=== PATIENT | male | born 1985 | race Caucasian/White ===

== ENCOUNTER 2021-01-06 13:05 | Emergency (ER) | payer SELFPAY ==
[~2021-01-06] VITALS: Ht 185 cm; Wt 90.0 kg
[~2021-01-06 13:05] MED LIST: SULF-222 PO
[2021-01-06] MEDS ORDERED: CEPHALEXIN 250 MG (KEFLEX) CAP PO STA (13:30)
[2021-01-06] MEDS ORDERED: DOXYCYCLINE 100 MG (VIBRAMYCIN) TABLET PO STA (13:30)
[2021-01-06 13:33] VITALS: BP 165/101
--- NOTE | 2021-01-06 13:38 | ED Integumentary General ---
General Chief Complaint: R arm infection Stated Complaint: R ARM WOUND Source: patient Exam Limitations: no limitations History of Present Illness Date Seen by Provider: Jan 06, 2021 Time Seen by Provider: 13:20 Initial Comments Very pleasant 35-year-old male coming in due to concerns for an infection on his right inner upper arm. Noticed a small red dot yesterday with the redness spreading today. No pus has come from it. No fever, chest pain, shortness of b reath, abdominal pain, nausea, vomiting, diarrhea, or any other concerns. Did not believe he had a bug bites or any type of sting. Denies any scratches, IV needlestick use, or any other concerns. Tetanus is updated within the last 5 years. Allergies and Home Medications Allergies Uncoded Allergies: NKDA (Allergy, Mild, 11/20/08) Home Medications Cephalexin 500 Mg Tablet, 500 MG PO TID Prescribed by: CARLENE BHAT on 01/06/21 1341 Doxycycline Hyclate 100 Mg Tablet, 100 MG PO BID Prescribed by: CARLENE BHAT on 01/06/21 1341 Trimethoprim/Sulfamethoxazole 1 Ea Tablet, 1 EA PO BID Prescribed by: JOSE CARPENTER on 08/24/14 1655 Patient Home Medication List Home Medication List Reviewed: Yes Review of Systems Review of Systems Constitutional: No fever EENTM: No blurred vision, No double vision, No throat pain Respiratory: No short of breath, No stridor Cardiovascular: No edema, No palpitations, No syncope Gastrointestinal: No diarrhea, No nausea Genitourinary: No hematuria, No pain Skin: rash Psychiatric/Neurological: See HPI; Denies Paresthesia, Denies Seizure, Denies Tingling Endocrine: See HPI; Denies Excessive Sweating, Denies Flushing, Denies Increased Urine, Denies Other Hematologic/Lymphatic: Denies Other All Other Systems Reviewed Negative Unless Noted: Yes Past Pozdkdk-Jnaawq-Ncxdsx Hx Patient Social History Tobacco Use?: Yes Tobacco type used: Cigarettes Immunizations Up To Date Tetanus Booster (TDap): Less than 5yrs Seasonal Allergies Seasonal Allergies: No Past Medical History Orthopedic Physical Exam Vital Signs Capillary Refill : General Appearance: WD/WN, no apparent distress HEENT: PERRL/EOMI, normal ENT inspection, TMs normal, pharynx normal Neck: non-tender, full range of motion, supple, normal inspection Cardiovascular: normal peripheral pulses, regular rate, rhythm, no edema, no gallop, no JVD, no murmur Respiratory: chest non-tender, lungs clear, normal breath sounds, no respiratory distress, no accessory muscle use Gastrointestinal: normal bowel sounds, non tender, soft, no organomegaly, no pulsatile mass Back: normal inspection, no CVA tenderness, no vertebral tenderness Extremities: normal range of motion, non-tender, normal inspection, no pedal edema, no calf tenderness, normal capillary refill, pelvis stable Neurologic/Psychiatric: 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, no motor/sensory deficits, alert, normal mood/affect, oriented x 3, EOM palsy, depressed affect Skin: normal color, warm/dry, rash (Roughly 3 inch in diameter circular blanching macular rash to the right inner upper arm just inside the bicep, no fluctuance noted) Lymphatic: no adenopathy Procedures/Interventions Suture Size: 4-0 Progress/Results/Core Measures Results/Orders My Orders Orders - CARLENE BHAT MD Doxycycline Hyclate Tablet (Vibramycin T (01/06/21 13:30) Cephalexin Capsule (Keflex Capsule) (01/06/21 13:30) Progress Progress Note : Progress Note Coming in due to rash to his right upper inner arm. Vital stable on presentation and ABCs intact. Overall very well-appearing. Appears like mild beginning of cellulitis. I did a [id number] ultrasound showing no drainable abscess but there does appear to be a phlegmon of developing abscess. Given this we will treat as if it is MRSA. He will be given first dose of doxycycline here as well as Keflex to cover for any strep species. He then will be given a prescription for this. There are no bite sites concerning for any envenomations. No systemic symptoms at this time. Otherwise I believe he is stable for discharge. Sent home with strict return precautions. Departure Impression Primary Impression: Cellulitis of arm, right Disposition: 01 HOME, SELF-CARE Condition: Stable Departure-Patient Inst. Decision time for Depature: 13:41 Referrals: OTILIO SANCHEZ DO (PCP/Family) Primary Care Physician Patient Instructions: Cellulitis (Skin Infection), Adult ED Add. Discharge Instructions: Take 600 mg of ibuprofen every 6 hours for pain or fever. If the redness is s preading or you develop fever after being on antibiotics for greater than 24 hours then please come back to the emergency department. If you have any other concerns please come back to the emergency department. Scripts Doxycycline Hyclate (Doxycycline Hyclate) 100 Mg Tablet 100 MG PO BID for 7 Days, #21 TAB 0 Refills Prov: CARLENE BHAT MD 01/06/21 Cephalexin (Cephalexin) 500 Mg Tablet 500 MG PO TID for 7 Days, #21 TAB 0 Refills Prov: CARLENE BHAT MD 01/06/21 CARLENE BHAT MD Jan 06, 2021 13:38
[2021-01-06] MEDS ORDERED: CEPH500T PO (13:41)
[2021-01-06] MEDS ORDERED: DOXY100T2 PO (13:41)
== END 2021-01-06 14:01 | disposition home or self-care (01) ==
LOC: EDUNIT# 13:05 → ER 13:06
DX: L03.113 Cellulitis of right upper limb (principal)
CPT/HCPCS: 99283

== ENCOUNTER 2023-03-07 22:40 | Emergency (ER) | payer SELFPAY ==
[~2023-03-07] VITALS: Ht 185 cm; Wt 86.0 kg
[~2023-03-07 22:40] MED LIST changes: +CEPH500T PO; +DOXY100T2 PO
[2023-03-08] MEDS ORDERED: cefTRIAXone IV/IM 1,000 MG in NS (IVPB) 50 ML 50 ML IV STA (00:06)
--- NOTE | 2023-03-08 00:10 | ED General ---
General Chief Complaint: Skin/Wound Problems Stated Complaint: RT CLANCY WOUND, CRAMPING THROUGHOUT BODY Nursing Triage Note: PATIENT STATES SCRATCHED HIS RT LEG WITH A NAIL TWO DAYS AGO, ATTEMPTED TO CLOSE WITH SUPER GLUE. PATIENT VERBALIZED "DIDN'T WORK" REDNESS AND PAIN NOTED TO RT LOWER CALF SURROUND WOUND. PATIENT REPORTS HE WALKED FROM [place] Source of Information: Patient Exam Limitations: No Limitations History of Present Illness Date Seen by Provider: Mar 07, 2023 Time Seen by Provider: 23:55 Initial Comments This 37-year-old young man presents to the emergency room after walking a great distance for evaluation of a right lower leg wound. The wound occurred 2 days ago when he cut it with a piece of metal while collecting scrap metal. He attempted to glue the laceration with superglue. Since then he has developed swelling, redness, and pain. He is afebrile. He has not been taking any medications to treat symptoms. Allergies and Home Medications Allergies Uncoded Allergies: NKDA (Allergy, Mild, 11/20/08) Patient Home Medication List Home Medication List Reviewed: Yes Cephalexin (Cephalexin) 500 Mg Tablet, 500 MG PO TID Prescribed by: CARLENE BHAT on 01/06/21 1341 Cephalexin (Cephalexin) 500 Mg Tablet, 500 MG PO QID Prescribed by: RENEE GREENFIELD on 03/08/23 0048 Doxycycline Hyclate (Doxycycline Hyclate) 100 Mg Tablet, 100 MG PO BID Prescribed by: CARLENE BHAT on 01/06/21 1341 Sulfamethoxazole/Trimethoprim (Bactrim Ds Tablet) 1 Each Tablet, 1 EACH PO BID Prescribed by: RENEE GREENFIELD on 03/08/238 Trimethoprim/Sulfamethoxazole (Bactrim DS) 1 Ea Tablet, 1 EA PO BID Prescribed by: JOSE CARPENTER on 08/24/14 1655 Review of Systems Review of Systems Constitutional: no symptoms reported EENTM: no symptoms reported Respiratory: no symptoms reported Cardiovascular: no symptoms reported Gastrointestinal: no symptoms reported Genitourinary: no symptoms reported Musculoskeletal: no symptoms reported Skin: see HPI Psychiatric/Neurological: No Symptoms Reported Hematologic/Lymphatic: No Symptoms Reported Immunological/Allergic: no symptoms reported Past Nktoydy-Ogotyo-Ulpaxb Hx Immunizations Up To Date Tetanus Booster (TDap): Less than 5yrs Seasonal Allergies Seasonal Allergies: No Past Medical History Surgeries: Yes Orthopedic Respiratory: No Cardiac: No Neurological: No Reproductive Disorders: No Gastrointestinal: No Musculoskeletal: No Endocrine: No HEENT: No Cancer: No Psychosocial: No Integumentary: Yes (history of cellulitis) Physical Exam Vital Signs Vital Signs - First Documented 03/07/23 23:02 Temp 36.7 Pulse 100 Resp 20 B/P (MAP) 117/79 (92) Pulse Ox 100 O2 Delivery Room Air Capillary Refill : Less Than 3 Seconds Height, Weight, BMI Height: 6'1" Weight: 240lbs. oz. [id number]; 25.00 BMI Method:Stated General Appearance: No Apparent Distress HEENT: Normal ENT Inspection Neck: Normal Inspection Respiratory: Lungs Clear, Normal Breath Sounds, No Accessory Muscle Use Cardiovascular: Regular Rate, Rhythm, No Edema, No Murmur Extremity: Other (scabbed and glued wound over the right mid clancy. No fluctuance, fullness, or drainage to suggest abscess. Mild surrounding erythema, warmth and swelling suggestive of cellulitis) Neurologic/Psychiatric: Alert, Oriented x3, No Motor/Sensory Deficits, Normal Mood/Affect Skin: Normal Color, Warm/Dry Procedures/Interventions Suture Size: 4-0 Progress/Results/Core Measures Suspected Sepsis SIRS Temperature: Pulse: 100 Respiratory Rate: 20 Laboratory Tests 03/07/23 22:55: White Blood Count 11.3H Blood Pressure 117 /79 Mean: 92 Laboratory Tests 03/07/23 22:55: Creatinine 1.15, Platelet Count 209 Results/Orders Lab Results Laboratory Tests Test 03/07/23 22:55 Range/Units White Blood Count 11.3 H 4.3-11.0 10^3/uL Red Blood Count 5.10 4.30-5.52 10^6/uL Hemoglobin 14.7 13.3-17.7 g/dL Hematocrit 44 40-54 % Mean Corpuscular Volume 86 80-99 fL Mean Corpuscular Hemoglobin 29 25-34 pg Mean Corpuscular Hemoglobin Concent 34 32-36 g/dL Red Cell Distribution Width 13.6 10.0-14.5 % Platelet Count 209 130-400 10^3/uL Mean Platelet Volume 11.3 9.0-12.2 fL Immature Granulocyte % (Auto) 0 % Neutrophils (%) (Auto) 73 42-75 % Lymphocytes (%) (Auto) 19 12-44 % Monocytes (%) (Auto) 7 0-12 % Eosinophils (%) (Auto) 1 0-10 % Basophils (%) (Auto) 0 0-10 % Neutrophils # (Auto) 8.2 H 1.8-7.8 10^3/uL Lymphocytes # (Auto) 2.2 1.0-4.0 10^3/uL Monocytes # (Auto) 0.7 0.0-1.0 10^3/uL Eosinophils # (Auto) 0.1 0.0-0.3 10^3/uL Basophils # (Auto) 0.0 0.0-0.1 10^3/uL Immature Granulocyte # (Auto) 0.0 0.0-0.1 10^3/uL Sodium Level 137 135-145 MMOL/L Potassium Level 4.1 3.6-5.0 MMOL/L Chloride Level 103 98-107 MMOL/L Carbon Dioxide Level 23 21-32 MMOL/L Anion Gap 11 5-14 MMOL/L Blood Urea Nitrogen 22 H 7-18 MG/DL Creatinine 1.15 0.60-1.30 MG/DL Estimat Glomerular Filtration Rate 85 BUN/Creatinine Ratio 19 Glucose Level 116 H 70-105 MG/DL Calcium Level 9.1 8.5-10.1 MG/DL C-Reactive Protein High Sensitivity 0.31 0.00-0.50 MG/DL Micro Results Microbiology 03/07/23 Blood Culture - Preliminary, Resulted My Orders Orders - RENEE JARAMILLO MD Basic Metabolic Panel (03/08/23 00:05) Cbc And Automated Diff (03/08/23 00:05) Hs C Reactive Protein (03/08/23 00:05) Blood Culture (03/08/23 00:06) Ed Iv/Invasive Line Start (03/08/23 00:06) Vital Signs Adult Sepsis Patie Q15M (03/08/23 00:06) Remove Rings In Anticipation O (03/08/23 00:06) Ceftriaxone Iv/Im (Ceftriaxone Iv/Im) (03/08/23 00:06) Ketorolac Injection (Ketorolac Injection (03/08/23 00:15) Sulfamethoxazole/Tmp Ds Tablet (Sulfamet (03/08/23 00:15) Dipht/Pertuss(Acell)/Tet Adult (Dipht/Pe (03/08/23 00:15) Medications Given in ED Vital Signs/I&O 03/07/23 03/08/23 23:02 00:56 Temp 36.7 Pulse 100 Resp 20 20 B/P (MAP) 117/79 (92) 108/63 Pulse Ox 100 96 O2 Delivery Room Air Room Air Capillary Refill : Less Than 3 Seconds Blood Pressure Mean: 92 Progress Note : Time: 00:38 Progress Note Vital signs were relatively unremarkable except for mild tachycardia. Labs were obtained, reviewed, and interpreted by me. CBC demonstrated slight elevation in WBC at 11.3. BMP was unremarkable. CRP was normal. Patient did not meet septic criteria. He did, however, seem to have a significant cellulitis of the right lower extremity near the wound. This was treated with a dose of Rocephin and oral Bactrim. Because of the nature of the wound from a dirty environment and occlusion of the wound with superglue, double coverage was deemed appropriate. He will continue on antibiotics after discharge with Keflex and Bactrim. Toradol was given for pain control. I could not find record of a tetanus immunization, so Boostrix was administered. Departure Impression Primary Impression: Cellulitis of right leg Additional Impression: Leg wound, right Qualified Codes: S81.801A - Unspecified open wound, right lower leg, initial encounter Disposition: 01 HOME, SELF-CARE Condition: Stable Departure-Patient Inst. Decision time for Depature: 00:41 Referrals: OTILIO SANCHEZ DO (PCP/Family) Primary Care Physician Patient Instructions: Cellulitis (Skin Infection), Adult ED Add. Discharge Instructions: Complete your antibiotics as prescribed. You may take Tylenol (acetaminophen) up to 1000 mg every 6 hours as needed and/or ibuprofen up to 600 mg every 6 hours as needed for pain. Elevate your foot to the level of your heart is much as possible. Return to the emergency room if you have worsening symptoms including escalating pain, fever of 100.3 or higher, rapidly spreading redness and swelling, or other significant problems. All discharge instructions reviewed with patient and/or family. Voiced understanding. Scripts Cephalexin (Cephalexin) 500 Mg Tablet 500 MG PO QID, #40 TAB Prov: RENEE JARAMILLO MD 03/08/23 Sulfamethoxazole/Trimethoprim (Bactrim Ds Tablet) 1 Each Tablet 1 EACH PO BID, #20 TAB Prov: RENEE JARAMILLO MD 03/08/23 RENEE JARAMILLO MD Mar 08, 2023 00:10
[2023-03-08] MEDS ORDERED: Tetanus/Diphtheria/Pertussis (Acell) ADULT Vaccine 0.5 ML IM ONE (00:15)
[2023-03-08] MEDS ORDERED: Sulfamethoxazole/Trimethoprim DS TABLET PO ONE (00:15)
[2023-03-08] MEDS ORDERED: KETOROLAC INJ 30 MG/ML VIAL IVP ONE (00:15)
[2023-03-08 00:24] LABS: POTASSIUM 4.1 MMOL/L (3.6-5.0)
[2023-03-08 00:25] LABS: CALCIUM 9.1 MG/DL (8.5-10.1)
[2023-03-08 00:28] LABS: BASOPHILS % (AUTO) 0 % (0-10); EOSINOPHILS # (AUTO) 0.1 10^3/uL (0.0-0.3); EOSINOPHILS % (AUTO) 1 % (0-10); HEMATOCRIT 44 % (40-54); HEMOGLOBIN 14.7 g/dL (13.3-17.7); LYMPHOCYTES # (AUTO) 2.2 10^3/uL (1.0-4.0); LYMPHOCYTES % (AUTO) 19 % (12-44); MEAN CORPUSCULAR HEMOGLOBIN 29 pg (25-34); MEAN CORPUSCULAR HGB CONC 34 g/dL (32-36); MEAN CORPUSCULAR VOLUME 86 fL (80-99); MEAN PLATELET VOLUME 11.3 fL (9.0-12.2); MONOCYTES # (AUTO) 0.7 10^3/uL (0.0-1.0); MONOCYTES % (AUTO) 7 % (0-12); NEUTROPHILS # (AUTO) 8.2 10^3/uL (1.8-7.8); NEUTROPHILS % (AUTO) 73 % (42-75); PLATELET COUNT 209 10^3/uL (130-400); WHITE BLOOD COUNT 11.3 10^3/uL (4.3-11.0)
[2023-03-08 00:29] LABS: CREATININE SERUM 1.15 MG/DL (0.60-1.30)
[2023-03-08] MEDS ORDERED: CEPH500T PO (00:48)
[2023-03-08] MEDS ORDERED: SULF1TAB38 PO (00:48)
[2023-03-08 00:56] VITALS: BP 108/63
== END 2023-03-08 00:58 | disposition home or self-care (01) ==
LOC: EDUNIT# 22:40 → ER 22:44
DX: S80.921A Unspecified superficial injury of right lower leg, initial encounter (principal); L03.115 Cellulitis of right lower limb; W26.8XXA Contact with other sharp object(s), not elsewhere classified, initial encounter
CPT/HCPCS: 36415; 80048; 85025; 86141; 87040; 90715